=== PATIENT | female | born 1985 | race Caucasian/White ===

== ENCOUNTER 2017-10-15 07:47 | Observation (INO) ==
[2017-10-15] MEDS ORDERED: SODIUM CHLORIDE 0.9% 1,000 ML IV STA ×2 (08:36→11:44)
[2017-10-15] MEDS ORDERED: ONDANSETRON 4 MG/2 ML VIAL IV STA (08:36)
[2017-10-15] MEDS ORDERED: HYDROmorphone 2 MG/1 ML VIAL IV STA (08:36)
[2017-10-15] MEDS ORDERED: ONDANSETRON 4 MG/2 ML VIAL ONE (08:49)
[2017-10-15 08:57] LABS: Basophils % 0.2 % (0.0-0.8); Eosinophils % 0.3 % (0.00-10.9); Hematocrit 43.9 VOL% (35.7-47.0); Hemoglobin 14.7 GM/DL (12.0-16.0); Immature Granulocytes % 0.2 %; Immature Granulocytes Absolute 0.02 #; Lymphocytes # 0.3 10*3/uL (1.4-4.0); Lymphocytes % 3.4 % (21.3-54.2); Mean Corpuscular HGB Conc 33.5 GM/DL (32-36); Mean Corpuscular Hemoglobin 29 PG (27-34); Mean Corpuscular Volume 87.3 FL (87-102); Mean Platelet Volume 10.2 FL (9.6-12.0); Monocytes # 0.5 10*3/uL (0.11-0.8); Monocytes % 5.5 % (1.7-12.7); Neutrophils # 8.6 10*3/uL (1.4-7.4); Neutrophils % 90.4 % (38.7-73.9); Platelet Count 210 T/CUMM (130-400); Red Blood Count 5.03 MC/CUMM (3.8-5.5); Red Cell Distribution Width 12.9 % (9.3-17.3); White Blood Count 9.5 T/CUMM (4-12)
[2017-10-15 09:27] LABS: Alanine Aminotransferase 28 U/L (13-56); Alkaline Phosphatase 56 U/L (45-117); Aspartate Amino Transferase 17 U/L (0-37); Blood Urea Nitrogen 12 MG/DL (7-18); Calcium 9.1 MG/DL (8.5-10.1); Glucose 135 MG/DL (74-106); Osmolality,Calculated 278.5 MOS/KG (273-304); Potassium 4.4 MMOL/L (3.5-5.1); Sodium 139 MMOL/L (136-145); Total Protein 7.6 G/DL (6.4-8.3)
[2017-10-15 09:31] LABS: Apearance,Urine Slightly Hazy (Clear); Bilirubin,Urine Negative (Negative); Blood, Urine Negative (Negative); Glucose,Urine (UA) Negative (Negative); Ketones,Urine Negative (Negative); Mucus,Urine Few /LPF (Occasional); Nitrite,Urine Negative (Negative); Protein,Urine Negative; RBC,Urine 1 /HPF (0-4); Squamous Epithelial Cell,Urine Occasional /HPF (0-10); Urine Color Yellow (Yellow); Urine Specific Gravity 1.023 (1.001-1.035); Urine Urobilinogen < 2.0 EU/DL (0.2-1.0); WBC,Urine 1 /HPF (0-6)
[2017-10-15 09:32] LABS: Lactic Acid 2.5 MMOL/L (0.4-2.0)
[2017-10-15] MEDS ORDERED: HYDROmorphone 2 MG/1 ML VIAL ONE (09:44)
[2017-10-15] MEDS ORDERED: MORPHINE 2 MG/1 ML SYRINGE IV PRN (11:47)
[2017-10-15] MEDS ORDERED: ONDANSETRON 4 MG/2 ML VIAL IV PRN (11:47)
[2017-10-15] MEDS ORDERED: MAGNESIUM SULF RIDER 4 GM in PREMIX 1 EACH IV PRN (11:48)
[2017-10-15] MEDS ORDERED: MAGNESIUM SULF RIDER 2 GM in PREMIX 1 EACH IV PRN (11:48)
[2017-10-15] MEDS ORDERED: CIPROFLOXACIN INJ 400 MG in PREMIX 1 EACH IV SCH (12:00)
[2017-10-15] MEDS ORDERED: metroNIDAZOLE INJ 500 MG in PREMIX 1 EACH IV SCH (12:00)
[2017-10-15 12:24] LABS: Risk Ratio 2.7
[2017-10-15 13:26] LABS: Macrocytosis 1+
[2017-10-15] MEDS: SODIUM CHLORIDE 0.9% 1,000 ML IV SCH ×2 (13:26→21:03)
[2017-10-15 14:17] LABS: Lactic Acid 2.3 MMOL/L (0.4-2.0)
[2017-10-15] MEDS ORDERED: ENOXAPARIN 40 MG/0.4 ML SYRINGE SUBCUT SCH (21:00)
[2017-10-16] MEDS: SODIUM CHLORIDE 0.9% 1,000 ML IV SCH (06:22)
[2017-10-16] MEDS ORDERED: PANTOPRAZOLE 40 MG VIAL IV SCH (09:00)
[2017-10-16] MEDS ORDERED: ACETAMINOPHEN 325 MG TABLET PO PRN (09:26)
[2017-10-16 12:39] VITALS: BP 104/61
== END 2017-10-16 12:46 | disposition home or self-care (01) ==
LOC: N.ED 07:47 → N.EDINP 07:47 → N.5E 13:07
PROVIDERS: ADMIT Internal Medicine; ATTEND Internal Medicine